=== PATIENT | female | born 1995 | race Caucasian/White ===

== ENCOUNTER 2018-01-24 10:31 | Emergency (ER) | payer BC ==
[~2018-01-24] VITALS: Ht 167.6 cm; Wt 96.0 kg
[2018-01-24] MEDS ORDERED: IBUPROFEN 600MG TABLET PO ONE (12:30)
[2018-01-24 12:56] VITALS: BP 118/78
== END 2018-01-24 12:58 | disposition home or self-care (01) ==
LOC: ER 12:08
DX: S93.401A Sprain of unspecified ligament of right ankle, initial encounter (principal); W01.0XXA Fall on same level from slipping, tripping and stumbling without subsequent striking against object, initial encounter; Y93.89 Activity, other specified; Y92.89 Other specified places as the place of occurrence of the external cause; Y99.8 Other external cause status
CPT/HCPCS: 73610; 81025; 99284; Z7610